=== PATIENT | male | born 1955 | race Caucasian/White ===

== ENCOUNTER 2023-01-29 10:51 | Outpatient (OUT) | payer BC, SELFPAY ==
--- NOTE | 2023-01-29 11:06 | XR_ITS ---
The [address] [address] Patient Name: GIL WOLF MRN: [id number] date: 1955 Sex: M Assigned Patient Location: [facility] Current Patient Location: [facility] Accession/Order Number: [id number] Exam Date: 01/29/2023 11:13 Report Date: 01/29/2023 15:33 At the request of: CALDERON GONZALEZ Procedure: XR cervical spine 5V EXAMINATION: XR cervical spine 5V HISTORY: Chronic neck pain with numbness of both hands M54.2, G89.29 COMPARISON: No relevant comparison available. FINDINGS: BONES: Straightening of normal lordotic curvature of the lower cervical spine. Mild grade 1 anterior listhesis of C4 in relation to C3 and C5. Moderate degenerative facet arthropathy C3-4 through C5-6.. DISC SPACES: No significant disc height narrowing, subluxation, or endplate abnormality. Marked narrowing C5-6 with prominent posterior disc-osteophyte complex. Moderate narrowing C3-4 through C5-6. Multilevel moderate foramen narrowing secondary to bone encroachment and suspected disc bulging. PARASPINOUS: Negative. No paraspinous abnormality is seen. OTHER: Negative. IMPRESSION: 1. Marked degenerative changes of the cervical spine. Consider MRI for further evaluation. Electronically authenticated by: SENTHIL JAIN Date: 01/29/2023 15:33
== END 2023-01-29 10:52 ==
LOC: RAD 10:59
PROVIDERS: PCP Nurse Practitioner Family; Visit Provider Nurse Practitioner Family
DX: M54.2 Cervicalgia (principal); G89.29 Other chronic pain; M47.812 Spondylosis without myelopathy or radiculopathy, cervical region
CPT/HCPCS: 72050

== ENCOUNTER 2024-02-15 11:43 | Outpatient (OUT) | payer BC, SELFPAY ==
[2024-02-16 04:09] LABS: PSA, Free 1.16 ng/mL; Prostate Specific Ag 10.3 ng/mL (0.0-4.0)
== END 2024-02-15 11:44 | disposition home or self-care (01) ==
PROVIDERS: PCP Nurse Practitioner Family; Visit Provider Urology
DX: C61 Malignant neoplasm of prostate (principal)
CPT/HCPCS: 36415; 84153; 84154

== ENCOUNTER 2024-09-08 12:42 | Outpatient (OUT) | payer MEDICARE, OTHER, SELFPAY ==
--- NOTE | 2024-09-08 13:07 | XR_ITS ---
The [place] [id number] Patient Name: GIL WOLF MRN: [id number] date: 1955 Sex: M Assigned Patient Location: [facility] Current Patient Location: Accession/Order Number: [id number] Exam Date: 09/08/2024 13:00 Report Date: 09/09/2024 08:28 At the request of: ANDREA OROZCO Procedure: XR hip LT min 2V PROCEDURE: XR hip LT min 2V HISTORY: Chronic Left Hip Pain COMPARISON: None. FINDINGS: BONES:Complete loss of the superior aspect of the hip joint space with [id number] contact and slight remodeling of the acetabulum and weightbearing surface of the femoral head. SOFT TISSUES:No visible soft tissue swelling. EFFUSION:None visible. OTHER: Negative. XR/XR hip LT min 2V IMPRESSION: 1. Marked degenerative joint disease of the left hip. Electronically authenticated by: SENTHIL JAIN Date: 09/09/2024 08:28
== END 2024-09-08 12:43 | disposition home or self-care (01) ==
LOC: RAD 12:48
PROVIDERS: PCP Nurse Practitioner Family; Visit Provider Nurse Practitioner Family
DX: M25.552 Pain in left hip (principal); M16.12 Unilateral primary osteoarthritis, left hip
CPT/HCPCS: 73502